=== PATIENT | male | born 1965 | race Caucasian/White ===

== ENCOUNTER 2016-10-12 06:20 | Day surgery (SDC) | payer BC ==
[2016-10-06 08:33] VITALS: BMI 38.4
[~2016-10-12 06:20] MED LIST: ACETAMINOPHEN TAB 500 MG TAB PO ONE; DEXAMETHASONE SOD PHOSPHATE 10 MG/ML 1 ML VIAL IV ONE; DEXAMETHASONE SOD PHOSPHATE 4 MG/ML 1 ML VIAL IV ONE; FAMOTIDINE 20 MG/2 ML VIAL IV ONE; LACTATED RINGERS 1,000 ML IV SCH; MIDAZOLAM 2 MG/2 ML VIAL IV PRN; ONDANSETRON 4 MG/2 ML VIAL IVP ONE; Pre Op ABX Message 1 EACH MISC MISCELLANE ONE; ceFAZolin 1,000 MG in DEXTROSE/WATER 1 50ML.BAG IV ONE
[2016-10-12] MEDS ORDERED: OXYMETAZOLINE 0.05% NASL SPRAY 15 ML NASAL ONE ×5 (06:45→07:11)
[2016-10-12] MEDS ORDERED: DEXTROSE 5% IN WATER 50 ML BAG ONE (07:37)
[2016-10-12] MEDS ORDERED: LACTATED RINGERS 1,000 ML BAG IV ONE (07:37)
[2016-10-12] MEDS ORDERED: ceFAZolin 1,000 MG VIAL ONE (07:37)
[2016-10-12] MEDS ORDERED: LIDOCAINE 1%-EPI 1:100,000 20 ML VIAL SQ ONE ×2 (08:03)
[2016-10-12] MEDS ORDERED: CIPROFLOXACIN-DEXAMETH 0.3-0.1% DROPS 7.5 ML BTL BOTH EARS ONE (08:03)
[2016-10-12] MEDS ORDERED: BACITRACIN 500 UNIT/GM OINT 28.4 GM TUBE TOPICAL ONE (08:08)
[2016-10-12] MEDS ORDERED: FLUORESCEIN STRIPS 1 MG STRIP MISCELLANE ONE (08:09)
[2016-10-12] MEDS ORDERED: EPINEPHrine 1 MG/ML (MDV) 30 ML VIAL TOPICAL ONE (08:09)
[2016-10-12] MEDS ORDERED: LACTATED RINGERS 1,000 ML IV ONE (08:36)
[2016-10-12 09:05] VITALS: TEMP 97
[2016-10-12] MEDS: HYDROmorphone 1 MG/ML 1 ML SYRINGE IVP PRN ×3 (09:10→09:21)
[2016-10-12] MEDS ORDERED: HYDROcodone/APAP 5-325MG 1 EACH TAB PO ONE (09:55)
--- NOTE | 2016-10-12 10:12 | P.OP ---
Date of Procedure: 10/12/16 Preoperative Diagnosis: Chronic otitis media with effusion Conductive hearing loss, bilateral Chronic sinusitis (Sinonasal polyps Foreign body left nose and sinus, metal wire Postoperative Diagnosis: Same Procedure(s) Performed: Bilateral direct microscopic tympanostomy and tube placement utilizing T tubes Bilateral endoscopic balloon eustachian tuboplasty Bilateral functional endoscopic sinus surgery with left sinonasal polyp removal Left endoscopic removal of foreign body i.e. wire Anesthesia: LUZMAA Surgeon: Jerry Eastman Estimated Blood Loss (ml): 10 Pathology: other (Foreign body left nose, sinonasal material) Condition: stable Disposition: PACU Indications for Procedure: This patient's been having a long-standing problem with his nose and sinuses. He is having a hard time breathing through his nose he has constant drainage chronic infection. He had a facial fracture many years ago and had wiring down to the maxilla. His ears have demonstrated a conductive hearing loss bilaterally for a long period of time. Operative Findings: Patient had a bilateral middle ear effusion Patient had widespread chronic sinusitis Patient had a foreign body in the left maxillary sinus and left nose underneath the inferior turbinates Description of Procedure: Patient was taken to the operative room and placed in the supine position. A general inhalation anesthetic was administered to the patient by mask. Patient was intubated. Patient was monitored throughout the entire case by the department of anesthesia. The patient had both ears visualized with a high- powered microscope. Tympanostomy incisions were made inferiorly. T tubes were placed and fluid was suctioned. Patient tolerated this well. Attention was then paid to the nose where a sphenopalatine nerve block was performed along with injection of the inferior turbinates middle turbinate and lateral nasal wall with lidocaine 1% with epinephrine 1 100,000. Endoscopic visualization was performed in the surgery was done with 0 and 30 Chery joaquin scopes. The nose and sinuses were inspected. There was a polyp causing blockage along the left ostomy complexes blocking all sinuses on the left there is lateralization of the middle turbinate on the right side blocking the sinuses on the right. Along the floor the nose and into the maxillary sinus was a shiny foreign object, a wire from a previous facial fracture surgery. This wire was collecting crusting and infectious debris. The wire was snipped and removed. This appeared to be a source of infection. This wire was removed. We then with use of an endoscope and a microdebrider we removed polyps and scar tissue bilaterally. We continued our dissection and open up the maxillary sinuses nicely and completed the ethmoidectomy on the left side with removal of all ethmoid septations. We then entered the sphenoid sinuses inferiorly medially bilaterally and we opened up the sphenoid sinuses and we remove diseased tissue from the sphenoid sinus we did the same thing to the frontal sinuses by entering the frontal sinus and removing diseased tissue from the frontal sinuses. To summarize the maxillary, ethmoid, frontal, and sphenoid sinuses were all open with diseased tissue removed. Polyp was removed on the left side. Scar tissue was removed bilaterally. We suture fixated the middle turbinates to the septum. We removed metal from the left maxillary sinus. We then went into the nasopharynx and identified the eustachian tube. With the acclarent device an eustachian tuboplasty was performed. This was done bilaterally. The patient tolerated this well. Xerogel was inserted. Patient was taken to postanesthesia recovery in excellent condition.
[2016-10-12 10:20] VITALS: BP 141/92; PULSE 100; RESP 16
== END 2016-10-12 10:36 | disposition home or self-care (01) ==
LOC: OR 06:20
PROVIDERS: ATTEND Otolaryngology
DX: H65.493 Other chronic nonsuppurative otitis media, bilateral (principal); H90.0 Conductive hearing loss, bilateral; J34.89 Other specified disorders of nose and nasal sinuses; J33.8 Other polyp of sinus; J32.4 Chronic pansinusitis; H69.93 Unspecified Eustachian tube disorder, bilateral; Z45.89 Encounter for adjustment and management of other implanted devices; I10 Essential (primary) hypertension; K21.9 Gastro-esophageal reflux disease without esophagitis; Z72.0 Tobacco use; Z88.2 Allergy status to sulfonamides; Z79.899 Other long term (current) drug therapy; Z79.51 Long term (current) use of inhaled steroids; Z79.52 Long term (current) use of systemic steroids
CPT/HCPCS: 69436; 20680; 69949; 31237; 88304; 88305; J0171; J1100; J2405; J0690; J1170

== ENCOUNTER 2018-04-08 05:44 | Emergency (ER) | payer BC ==
[2018-04-08 05:50] VITALS: RESP 18
[2018-04-08] MEDS ORDERED: ONDANSETRON 4 MG/2 ML VIAL IVP STA (05:59)
[2018-04-08] MEDS ORDERED: MORPHINE SULFATE 2 MG/ML SYRINGE IV STA (05:59)
[2018-04-08] MEDS ORDERED: SODIUM CHLORIDE 0.9% 1,000 ML IV STA (05:59)
[2018-04-08 06:33] LABS: Basophils # (A) 0.1 k/uL (0-0.2); Basophils % (A) 1 %; Eosinophils # (A) 0.2 k/uL (0-0.7); Eosinophils % (A) 3 %; HCT 47.3 % (39.0-53.0); HGB 16.4 gm/dL (13.0-17.5); Lymphocytes # (A) 1.8 k/uL (1.0-4.8); Lymphocytes % (A) 23 %; MCH 31.4 pg (25.0-35.0); MCHC 34.7 g/dL (31.0-37.0); MCV 90.6 fL (80.0-100.0); Mean Platelet Volume 7.2; Monocytes # (A) 0.4 k/uL (0-1.0); Monocytes % (A) 5 %; Neutrophils # (A) 5.3 k/uL (1.3-7.7); Neutrophils % (A) 67 %; Platelet Count 243 k/uL (150-450); RBC 5.23 m/uL (4.30-5.90); RDW 13.1 % (11.5-15.5); WBC 7.9 k/uL (3.8-10.6)
[2018-04-08 06:43] LABS: Appearance,Urine Clear (Clear); Bilirubin,Urine Negative (Negative); Blood,Urine Moderate (Negative); Color,Urine Yellow; Glucose,Urine (UA) Negative (Negative); Ketones,Urine Negative (Negative); Leukocyte Esterase,Urine Trace (Negative); Mucus,Urine Few /hpf; Nitrite,Urine Negative (Negative); Protein,Urine 1+ (Negative); RBC,Urine 53 /hpf (0-5); Specific Gravity,Urine 1.027 (1.001-1.035); WBC,Urine 7 /hpf (0-5)
[2018-04-08 06:49] LABS: ALT 36 U/L (21-72); AST 22 U/L (17-59); Albumin 4.3 g/dL (3.5-5.0); Alkaline Phosphatase 71 U/L (38-126); Amylase 35 U/L (30-110); Anion Gap 11 mmol/L; Blood Urea Nitrogen 19 mg/dL (9-20); Calcium 9.4 mg/dL (8.4-10.2); Carbon Dioxide 26 mmol/L (22-30); Chloride 106 mmol/L (98-107); Glucose 111 mg/dL (74-99); Lipase 55 U/L (23-300); Potassium 4.2 mmol/L (3.5-5.1); Sodium 143 mmol/L (137-145); Total Bilirubin 0.6 mg/dL (0.2-1.3); Total Protein 6.5 g/dL (6.3-8.2)
[2018-04-08] MEDS ORDERED: MORPHINE SULFATE 2 MG/ML SYRINGE IVP STA (07:15)
--- NOTE | 2018-04-08 07:21 | XR ---
EXAM: XR Abdomen, 2 Views CLINICAL HISTORY: ITS.REASON XR Reason: abdominal pain TECHNIQUE: Frontal view of the abdomen/pelvis with upright view of the abdomen. COMPARISON: No relevant prior studies available. FINDINGS: Lower thorax: Lower lungs are unremarkable. Intraperitoneal space: No visualized free air under the diaphragm. Gastrointestinal tract: Nonspecific bowel gas pattern. Paucity of central small bowel gas limits characterization. Moderate colonic stool. No definitive evidence for dilation. Bones/joints: Unremarkable. IMPRESSION: 1. Limited small bowel characterization due to lack of small bowel gas. There is a moderate colonic stool burden. Correlate for constipation.
[2018-04-08] MEDS ORDERED: MORPHINE SULFATE 2 MG/ML SYRINGE IVP PRN (08:56)
--- NOTE | 2018-04-08 08:56 | ED ---
Abdominal Pain HPI - General Source: patient Mode of arrival: ambulatory Limitations: no limitations <Britney Johnston - Last Filed: 04/08/18 08:57> <Ty Menjivar - Last Filed: 04/08/18 10:33> - General Chief Complaint: Abdominal Pain Stated Complaint: Flank Pain Time Seen by Provider: 04/08/18 05:52 - History of Present Illness Initial Comments: 52 years old male complains about the right-sided flank pain also complaining about pain in the scrotal area he feels there is a prominent vein in the scrotum pain now him started yesterday he denies any trauma he does have a History of kidney stones he had a he said he had several years ago a kidney stone he is complaining about nausea. Denies any headaches no chest pain or shortness of breath no abdominal pain him a he is complaining about difficulty voiding (Britney Johnston) - Related Data Home Medications Medication Instructions Recorded Confirmed Lisinopril [Zestril] 10 mg PO DAILY@0200 09/04/16 04/08/18 Previous Rx's Medication Instructions Recorded Ketorolac [Toradol] 10 mg PO Q6HR #20 tab 04/08/18 Tamsulosin [Flomax] 0.4 mg PO DAILY #7 cap 04/08/18 Allergies Allergy/AdvReac Type Severity Reaction Status Date / Time Sulfa (Sulfonamide Allergy Rash/Hives Verified 04/08/18 08:20 Antibiotics) Review of Systems ROS Other: All systems not noted in ROS Statement are negative. <Britney Johnston - Last Filed: 04/08/18 08:57> ROS Other: All systems not noted in ROS Statement are negative. <Ty Menjivar - Last Filed: 04/08/18 10:33> ROS Statement: Those systems with pertinent positive or pertinent negative responses have been documented in the HPI. Past Medical History Past Medical History: GERD/Reflux, Hyperlipidemia, Hypertension Additional Past Medical History / Comment(s): No current problems with GERD/ Reflux. Currently having a hard time hearing bilaterally. History of Any Multi-Drug Resistant Organisms: MRSA Date of last positivie culture/infection: 2006 MDRO Source:: boils to hip & face Past Surgical History: Hernia Repair Additional Past Surgical History / Comment(s): hemorrhoidectomy,Jaw surgery- wiring present,tubes sayda ears x 2, vasectomy Past Anesthesia/Blood Transfusion Reactions: No Reported Reaction Past Psychological History: No Psychological Hx Reported Smoking Status: Current every day smoker Past Alcohol Use History: Rare Past Drug Use History: None Reported - Past Family History Mother Family Medical History: Cancer Additional Family Medical History / Comment(s): lung Father Additional Family Medical History / Comment(s): passed with suicide at age 44 <Britney Johnston - Last Filed: 04/08/18 08:57> General Exam Limitations: no limitations <Britney Johnston - Last Filed: 04/08/18 08:57> <Ty Menjivar - Last Filed: 04/08/18 10:33> - General Exam Comments Initial Comments: General: The patient is awake and alert, in severe distress pain is 10 over 10 Skin: Skin is warm and dry and no rashes or lesions are noted. Eye: Pupils are equal, round and reactive to light, extra-ocular movements are intact; there is normal conjunctiva bilaterally. Ears, nose, mouth and throat: There are moist mucous membranes and no oral lesions. Neck: The neck is supple, there is no tenderness or JVD. Cardiovascular: There is a regular rate and rhythm. No murmur, rub or gallop is appreciated. Respiratory: To auscultation bilateral, no wheezing no rhonchi no distress respiratory vilchis noticed Gastrointestinal: Mild discomfort noticed in the right lower quadrant area and right scrotum noticed area, mild tenderness over the right half of the scrotum Back: There is no tenderness to palpation in the midline. There is no obvious deformity. Musculoskeletal: Normal ROM, no tenderness, There is no pedal edema. There is no calf tenderness or swelling. No cords were appreciated. Neurological: CN II-XII intact, Cranial nerves III through XII are intact. There are no obvious motor or sensory deficits. Coordination appears grossly intact. Speech is normal. Psychiatric: Cooperative, appropriate mood & affect, normal judgment. (Britney Johnston) Course <Britney Johnston - Last Filed: 04/08/18 08:57> <Ty Menjivar - Last Filed: 04/08/18 10:33> Vital Signs 04/08/18 04/08/18 05:47 10:25 Temperature 98.3 F 97.6 F Pulse Rate 80 72 Respiratory 18 18 Rate Blood Pressure 177/81 148/88 O2 Sat by Pulse 97 98 Oximetry She was reassessed at term 845 he still in a pain 05/17 and will proceed with a CT of the abdomen and pelvis and patient is endorsed to Dr. Menjivar for further management at 9 AM (Britney Johnston) Medical Decision Making - Lab Data Result diagrams: 04/08/18 06:18 04/08/18 06:18 <Britney Johnston - Last Filed: 04/08/18 08:57> - Lab Data Result diagrams: 04/08/18 06:18 04/08/18 06:18 - Radiology Data Radiology results: report reviewed (I did review the imaging and report is evidence of a 3 or 4 mm stone in the right UVJ also some hydronephrosis. Is a question of a mucosal lesions seen on CAT scan follow-up is recommended.), image reviewed <Ty Menjivar - Last Filed: 04/08/18 10:33> - Medical Decision Making Patient was endorsed me when Dr. Johnston finish his shift. Patient currently is pain-free at this time he anti-inflammatory pain medication did help. I long discussion with him and his regarding findings he had colonoscopy year ago at which time diverticulosis was diagnosed no other lesions noted I did inform him of the CAT scan report and did recommend follow-up with Dr. Aviles who had seen before the patient be discharged on appropriate medication. (Ty Menjivar) - Lab Data Lab Results 04/08/18 04/08/18 04/08/18 Range/Units 06:18 06:18 06:24 WBC 7.9 (3.8-10.6) k/uL RBC 5.23 (4.30-5.90) m/uL Hgb 16.4 (13.0-17.5) gm/dL Hct 47.3 (39.0-53.0) % MCV 90.6 (80.0-100.0) fL MCH 31.4 (25.0-35.0) pg MCHC 34.7 (31.0-37.0) g/dL RDW 13.1 (11.5-15.5) % Plt Count 243 (150-450) k/uL Neutrophils % 67 % Lymphocytes % 23 % Monocytes % 5 % Eosinophils % 3 % Basophils % 1 % Neutrophils # 5.3 (1.3-7.7) k/uL Lymphocytes # 1.8 (1.0-4.8) k/uL Monocytes # 0.4 (0-1.0) k/uL Eosinophils # 0.2 (0-0.7) k/uL Basophils # 0.1 (0-0.2) k/uL Sodium 143 (137-145) mmol/L Potassium 4.2 (3.5-5.1) mmol/L Chloride 106 (98-107) mmol/L Carbon Dioxide 26 (22-30) mmol/L Anion Gap 11 mmol/L BUN 19 (9-20) mg/dL Creatinine 1.03 (0.66-1.25) mg/dL Est GFR (CKD-EPI)AfAm >90 (>60 ml/min/1.73 sqM) Est GFR (CKD-EPI)NonAf 85 (>60 ml/min/1.73 sqM) Glucose 111 H (74-99) mg/dL Calcium 9.4 (8.4-10.2) mg/dL Total Bilirubin 0.6 (0.2-1.3) mg/dL AST 22 (17-59) U/L ALT 36 (21-72) U/L Alkaline Phosphatase 71 (38-126) U/L Total Protein 6.5 (6.3-8.2) g/dL Albumin 4.3 (3.5-5.0) g/dL Amylase 35 (30-110) U/L Lipase 55 (23-300) U/L Urine Color Yellow Urine Appearance Clear (Clear) Urine pH 6.0 (5.0-8.0) Ur Specific [place] 1.027 (1.001-1.035) Urine Protein 1+ H (Negative) Urine Glucose (UA) Negative (Negative) Urine Ketones Negative (Negative) Urine Blood Moderate H (Negative) Urine Nitrite Negative (Negative) Urine Bilirubin Negative (Negative) Urine Urobilinogen 2.0 (<2.0) mg/dL Ur Leukocyte Esterase Trace H (Negative) Urine RBC 53 H (0-5) /hpf Urine WBC 7 H (0-5) /hpf Urine Mucus Few H (None) /hpf Disposition <Britney Johnston - Last Filed: 04/08/18 08:57> Is patient prescribed a controlled substance at d/c from ED?: No <Ty Menjivar - Last Filed: 04/08/18 10:33> Clinical Impression: Abdominal pain, Renal colic on right side, Kidney stone on right side, Diverticulosis Disposition: HOME SELF-CARE Condition: Good Prescriptions: Ketorolac [Toradol] 10 mg PO Q6HR #20 tab Tamsulosin [Flomax] 0.4 mg PO DAILY #7 cap Referrals: None,Stated [Primary Care Provider] - 1-2 days Varinder Olivas MD [STAFF PHYSICIAN] - 1-2 days
[2018-04-08] MEDS ORDERED: KETOROLAC 30 MG/ML 1 ML VIAL IVP STA (08:57)
--- NOTE | 2018-04-08 09:42 | CT ---
EXAMINATION TYPE: CT abdomen pelvis w con DATE OF EXAM: 04/08/2018 COMPARISON: Abdomen same date HISTORY: Flank pain, unable to urinate CT DLP: 1826 mGycm Automated exposure control for dose reduction was used. TECHNIQUE: Helical acquisition of images from the lung bases through the pelvis have been completed. CONTRAST: Performed without Oral Contrast and with IV Contrast, patient injected with 100 mL of Isovue 300. FINDINGS: There may be a small hiatal hernia. LUNG BASES: Some minimal dependent atelectatic changes are present. No pleural or pericardial effusio n. AORTA: No significant abnormality is appreciated. LIVER/GB: The liver is enlarged and shows low attenuation possibly due to hepatic steatosis. Gallblad rosita is normal. PANCREAS: No significant abnormality is seen. SPLEEN: Spleen is unremarkable, splenule is present posteriorly and inferiorly. ADRENALS: No significant abnormality is seen. KIDNEYS: There is mild right-sided hydronephrosis, hydroureter. At the level of the ureterovesical or ifice there is a calcification present measuring approximately 3 to 4 mm on the right. Left kidney is normal. REPRODUCTIVE ORGANS: Prostate shows some associated calcifications. BOWEL: Small umbilical hernia contains fat. Appendix is normal. There is extensive diverticular pike ges associated with the colon, colonic wall thickening present in the sigmoid, there may be a small l ipoma axial image 78 associated with the sigmoid colon, difficult to exclude a mucosal lesion. Right inguinal hernia contains fat. FREE AIR: No Free Air visible. ASCITES: None visible. PELVIC ADENOPATHY: None visualized. RETROPERITONEAL ADENOPATHY: No Retroperitoneal Adenopathy visible. URINARY BLADDER: Thickened wall could be due to lack of distention, correlate to exclude cystitis. OSSEOUS STRUCTURES: Degenerative disc changes noted at the sacral junction, lumbar spine. Multilevel spondylosis with posterior disc bulges noted into the spinal canal. IMPRESSION: DISTAL RIGHT URETERAL CALCULUS WITH SOME RIGHT-SIDED HYDRONEPHROSIS. DIVERTICULOSIS. DIFFICULT TO EXC LUDE A MUCOSAL LESION, IF BOWEL SURVEILLANCE HAS NOT BEEN PERFORMED, IT SHOULD BE CONSIDERED. HEPATIC STEATOSIS, HEPATOMEGALY. RIGHT INGUINAL HERNIA. Additional findings above.
[2018-04-08 10:26] VITALS: BP 148/88; PULSE 72; TEMP 97.6
== END 2018-04-08 10:43 | disposition home or self-care (01) ==
LOC: EC 05:44
DX: N13.2 Hydronephrosis with renal and ureteral calculous obstruction (principal); K57.90 Diverticulosis of intestine, part unspecified, without perforation or abscess without bleeding; I10 Essential (primary) hypertension; F17.200 Nicotine dependence, unspecified, uncomplicated; Z86.14 Personal history of Methicillin resistant Staphylococcus aureus infection; Z98.52 Vasectomy status; Z88.2 Allergy status to sulfonamides; Z79.899 Other long term (current) drug therapy
CPT/HCPCS: 99284; 96374; 96375 ×2; 96376 ×2; 96361 ×4; 36415; 80053; 82150; 83690; 85025; 81001; 74018; 74177; J2405; J1885; J2270; Q9967

== ENCOUNTER → 2018-06-07 | Outpatient (CLI) | payer BC ==
--- NOTE | 2018-06-07 16:00 | XR ---
EXAMINATION TYPE: XR chest 2V DATE OF EXAM: 06/07/2018 COMPARISON: NONE TECHNIQUE: PA and lateral views submitted. HISTORY: Pain FINDINGS: The lungs are clear and there is no pneumothorax, pleural effusion, or focal pneumonia. IMPRESSION: 1. No acute process.
--- NOTE | 2018-06-07 16:05 | XR ---
EXAMINATION TYPE: XR foot complete bilateral DATE OF EXAM: 06/07/2018 COMPARISON: NONE HISTORY: Pain TECHNIQUE: Three views are submitted bilaterally. FINDINGS: The osseous structures are intact. There is no acute fracture or dislocation. There is significant narrowing of the first MTP joint bilaterally. Hypertrophic spurs noted. No erosive change. Calcaneal spurs noted bilaterally. IMPRESSION: 1. Bilateral calcaneal spurs 2. Arthropathy of the first MTP joint bilaterally
== END | disposition home or self-care (01) ==
LOC: RADXRMAIN 14:25
PROVIDERS: ATTEND Family Medicine
DX: M12.88 Other specific arthropathies, not elsewhere classified, other specified site (principal); M77.31 Calcaneal spur, right foot; I10 Essential (primary) hypertension
CPT/HCPCS: 71046

== ENCOUNTER → 2018-07-11 | Outpatient (CLI) | payer BC ==
--- NOTE | 2018-07-11 14:07 | ECHOF ---
Referral Reason:R00.2 Palpitations MEASUREMENTS -------- HEIGHT: 175.3 cm WEIGHT: 113.4 kg BP: RVIDd: 3.0 cm (< 3.3) IVSd: 1.2 cm (0.6 - 1.1) LVIDd: 4.4 cm (3.9 - 5.3) LVPWd: 1.2 cm (0.6 - 1.1) IVSs: 1.7 cm LVIDs: 3.2 cm LVPWs: 1.2 cm LAESV Index (A-L): 18.24 ml/m Ao Diam: 3.9 cm (2.0 - 3.7) AV Cusp: 2.1 cm (1.5 - 2.6) LA Diam: 3.7 cm (2.7 - 3.8) MV EXCURSION: 19.544 mm (> 18.000) MV EF SLOPE: 51 mm/s (70 - 150) EPSS: 0.3 cm MV E Tyler: 0.44 m/s MV DecT: 303 ms MV A Tyler: 0.73 m/s MV E/A Ratio: 0.61 FINDINGS -------- Sinus rhythm. This was a technically adequate study. The left ventricular size is normal. There is mild concentric left ventricular hypertrophy. Overa ll left ventricular systolic function is normal with, an EF between 55 - 60 %. The right ventricle is normal in size. The left atrial size is normal. The right atrial size is normal. The aortic valve is trileaflet, and appears structurally normal. No aortic stenosis or regurgitation. The mitral valve is normal. Mild mitral regurgitation is present. Mild tricuspid regurgitation present. There is no evidence of pulmonary hypertension. The right v entricular systolic pressure, as measured by Doppler, is {RVSP}. There is no pulmonic regurgitation present. The aortic root size is normal. There is no pericardial effusion. CONCLUSIONS -------- 1. Sinus rhythm. 2. This was a technically adequate study. 3. The left ventricular size is normal. 4. There is mild concentric left ventricular hypertrophy. 5. Overall left ventricular systolic function is normal with, an EF between 55 - 60 %. 6. The left atrial size is normal. 7. The aortic valve is trileaflet, and appears structurally normal. No aortic stenosis or regurgitati on. 8. Mild mitral regurgitation is present. 9. Mild tricuspid regurgitation present. 10. There is no evidence of pulmonary hypertension. 11. There is no pulmonic regurgitation present. 12. The aortic root size is normal. 13. There is no pericardial effusion. RADIO DISC JOCKEY: Carmen Davis RDCS
--- NOTE | 2018-07-11 14:13 | EST ---
EXERCISE STRESS AGE: 52 SEX: M HT: 69" WT: 250 PROTOCOL: Stress Test STAGE: 4 DURATION OF EXERCISE: 10:53 HEART RATE REST: 57 BLOOD PRESSURE REST: 120/92 MAXIMUM HEART RATE ACHIEVED: 144 MAXIMUM BLOOD PRESSURE: 171/96 85% MPHR: 145 100% MPHR: 170 METS: 12.1 INDICATIONS: Chest pain, hypertension. CLINICAL INFORMATION: Baseline rhythm is sinus mechanism, rate 57, normal axis and intervals, minor nonspecific ST-segment changes in the inferior leads. Baseline blood pressure 120/92 mmHg. Patient exercised on Allan protocol for 10 minutes 53 seconds reaching a peak rate of 144 beats per minute which is equal to 85% maximum predicted heart rate. Blood pressure 171/96 mmHg. Test was terminated secondary to fatigue. There was no chest pain. Electrocardiograph monitoring revealed rare PVCs. There was no evidence of diagnostic ischemic ST deviation. CONCLUSION: 1. Good exercise tolerance with no symptoms of chest pain. 2. Normal stress electrocardiogram with no evidence of stress-induced ischemia with rare premature ventricular contractions. MMODL / IJN: [id number] /
== END | disposition home or self-care (01) ==
LOC: RADNMMAIN 08:59
PROVIDERS: ATTEND Family Medicine
DX: I08.1 Rheumatic disorders of both mitral and tricuspid valves (principal); I47.1 Supraventricular tachycardia; I10 Essential (primary) hypertension
CPT/HCPCS: 93017; 93270; 93271; 93306

== ENCOUNTER → 2022-01-06 | Outpatient (CLI) | payer BC ==
--- NOTE | 2022-01-06 16:09 | XR ---
EXAMINATION TYPE: XR chest 2V DATE OF EXAM: 01/06/2022 COMPARISON: Chest x-ray 06/07/2018 HISTORY: F 17.203, wheezing TECHNIQUE: Frontal and lateral views of the chest are obtained. FINDINGS: There is no focal air space opacity, pleural effusion, or pneumothorax seen. The cardiac silhouette size is within normal limits. Bronchial wall thickening is present. The osseous structure s are intact, there is spondylosis. IMPRESSION: Correlate for bronchitis, reactive airways disease, follow-up as indicated.
== END | disposition home or self-care (01) ==
LOC: RADXRMAIN 13:58
PROVIDERS: ATTEND Family Medicine
DX: R06.2 Wheezing (principal); F17.203 Nicotine dependence unspecified, with withdrawal
CPT/HCPCS: 71046

== ENCOUNTER → 2022-05-24 | Outpatient (CLI) | payer BC ==
--- NOTE | 2022-05-25 08:05 | MR ---
EXAMINATION TYPE: MR brain wo/w con DATE OF EXAM: 05/24/2022 COMPARISON: NONE HISTORY: Acute onset cerebrovascular disease. Headache unusual duration with pressure and fatigue and unspecified disorder of cranial fossa per order. TECHNIQUE: Multiplanar, multisequence images of the brain and brainstem is performed without and with IV contras t, utilizing 11 mL intravenous Gadavist . FINDINGS: Diffusion weighted images demonstrate no evidence of a recent infarct or other diffusion ab normality. The ventricular system and cisternal spaces are normal in size and appearance. The brain volume is age appropriate. Occasional scattered focus of T2 hyperintensity seen throughout the white matter bilaterally greatest involving the bilateral frontal lobes with approximately 10-15 small scat tered lesions seen. Midline structures demonstrate normal morphology. The craniocervical junction appears within normal limits. Post contrast images demonstrate no abnormal enhancement. The dural venous sinuses appear pa tent. The visualized sinuses are clear and the globes are intact. Marked increased fluid signal throu ghout the mastoid air cells bilaterally. IMPRESSION: 1. Marked increased fluid signal throughout the mastoid air cells bilaterally could reflect product o f retained secretions, mastoiditis needs to be considered. Correlate clinically and with point tender ness. 2. Mild nonspecific white matter changes may be on the basis of altered vascular mechanics related to products of migraine headaches. 3. No MRI evidence for a recent infarct.
== END | disposition home or self-care (01) ==
LOC: RADMRIMAIN 15:30
PROVIDERS: ATTEND Nurse Practitioner Family
DX: G52.9 Cranial nerve disorder, unspecified (principal); R51.9 Headache, unspecified
CPT/HCPCS: 70553; A9585

== ENCOUNTER 2022-06-22 06:16 | Day surgery (SDC) | payer BC ==
[2022-06-20 14:25] VITALS: BMI 32.0
[~2022-06-22 06:16] MED LIST changes: -ACETAMINOPHEN TAB 500 MG TAB PO ONE; -DEXAMETHASONE SOD PHOSPHATE 10 MG/ML 1 ML VIAL IV ONE; -DEXAMETHASONE SOD PHOSPHATE 4 MG/ML 1 ML VIAL IV ONE; -FAMOTIDINE 20 MG/2 ML VIAL IV ONE; +FAMOTIDINE 20 MG/2 ML VIAL IV PRN; -MIDAZOLAM 2 MG/2 ML VIAL IV PRN; +OXYMETAZOLINE 0.05% NASL SPRAY 1 SPRAY BOTTLE EA NOSTRIL PRN; -Pre Op ABX Message 1 EACH MISC MISCELLANE ONE; -ceFAZolin 1,000 MG in DEXTROSE/WATER 1 50ML.BAG IV ONE
[2022-06-22] MEDS ORDERED: ONDANSETRON 4 MG/2 ML VIAL ONE (06:57)
[2022-06-22] MEDS ORDERED: HYDROmorphone 0.5 MG/0.5 ML SYRINGE IVP PRN (07:00)
[2022-06-22] MEDS ORDERED: LIDOCAINE 1% (10MG/ML) FOR IV START INTRADERMA ONE (07:00)
[2022-06-22] MEDS ORDERED: fentaNYL (PF) 50 MCG/ML 2 ML AMP IV PRN (07:00)
[2022-06-22] MEDS ORDERED: DEXAMETHASONE SOD PHOSPHATE 4 MG/ML 1 ML VIAL IV ONE (07:04)
[2022-06-22] MEDS ORDERED: fentaNYL (PF) 50 MCG/ML 2 ML AMP ONE (07:21)
[2022-06-22] MEDS ORDERED: MIDAZOLAM 2 MG/2 ML VIAL ONE (07:21)
[2022-06-22] MEDS ORDERED: LIDOCAINE 2% INJ 20 MG/ML (2 ML VIAL) ONE (07:21)
[2022-06-22] MEDS ORDERED: ePHEDrine 50 MG/ML 1 ML VIAL ONE (07:21)
[2022-06-22] MEDS ORDERED: PROPOFOL 10 MG/ML 20 ML VIAL IV ONE (07:21)
[2022-06-22] MEDS ORDERED: CIPROFLOX/FLUOCIN OTIC 0.25ML DROPERETTE OTIC ONE (07:59)
--- NOTE | 2022-06-22 08:28 | P.OP ---
Date of Procedure: 06/22/22 Preoperative Diagnosis: Bilateral cartilaginous eustachian tube obstruction Chronic serous otitis media Bilateral conductive hearing loss ALLERGIC rhinitis Postoperative Diagnosis: Same Procedure(s) Performed: Bilateral direct microscopic tympanostomy and tube placement utilizing T tubes Bilateral endoscopic balloon eustachian tuboplasty Anesthesia: LUZMAA Surgeon: Jerry Eastman Estimated Blood Loss (ml): 0 Pathology: none sent Condition: stable Disposition: PACU Indications for Procedure: This patient has had a lifetime of eustachian tube obstruction and middle ear effusion issues. He has redeveloped a chronic otitis media and eustachian tube obstruction issues are persistent. He's failed medical therapy and after a long discussion we decided to proceed forward with bilateral direct microscopic tympanostomy and tube placement utilizing T tubes along with a balloon eustachian tuboplasty. All risks, benefits, and alternative therapies were discussed in detail. Questions were answered and consent was obtained. Operative Findings: Patient had bilateral middle ear effusion. Both tympanic membranes were very thin and atrophic. Large amount of ALLERGIC drainage is noted and the eustachian tube orifice was inflamed. Description of Procedure: This patient was taken to the operative room and placed in the supine position. A general inhalation anesthetic was administered to the patient and subsequently had an LMA inserted and was monitored throughout the entire case by the department of anesthesia. Both ears were visualized with a 250 mm Zeiss microscope and cerumen and epithelial debris was removed from the external auditory canal. Both tympanic membranes were very atrophic. Both were retracted with a middle ear effusion present. Tympanostomy incision was made inferiorly and a T-tube was inserted bilaterally. Fluid was suctioned. Attention was then paid to the nose where a 0 Chery joaquin scope was inserted and both eustachian tube orifices were evaluated and both were found to be inf lamed. Fair amount of ALLERGIC drainage was noted. The aclarent balloon system was inserted and insufflated with standard protocols. After eustachian tube insufflation was performed. All instrumentation was removed and the patient was taken to postanesthesia recovery in excellent condition. Patient is to follow- up in the office in the next few weeks. He is to call me if any problems should arise.
[2022-06-22 08:32] VITALS: TEMP 97.6
[2022-06-22 09:14] VITALS: RESP 20
[2022-06-22 09:31] VITALS: BP 140/88; PULSE 70
== END 2022-06-22 09:40 | disposition home or self-care (01) ==
LOC: OR 06:16
PROVIDERS: ATTEND Otolaryngology
DX: H65.23 Chronic serous otitis media, bilateral (principal); H68.133 Extrinsic cartilagenous obstruction of Eustachian tube, bilateral; H90.0 Conductive hearing loss, bilateral; F17.210 Nicotine dependence, cigarettes, uncomplicated; Z83.79 Family history of other diseases of the digestive system; K21.9 Gastro-esophageal reflux disease without esophagitis; I10 Essential (primary) hypertension; I49.9 Cardiac arrhythmia, unspecified; R49.0 Dysphonia; Z98.890 Other specified postprocedural states; Z79.899 Other long term (current) drug therapy; Z88.2 Allergy status to sulfonamides
CPT/HCPCS: 69436; 69799; C1726; J2250; J1100; J2405; J3010; J2704; J2001

== ENCOUNTER 2024-07-19 11:09 | Emergency (ER) | payer BC ==
[2024-07-19 11:15] VITALS: TEMP 97.8
--- NOTE | 2024-07-19 11:52 | ED ---
Extremity Problem HPI - General Chief complaint: Extremity Problem,Nontraumatic Stated complaint: Hypertension Time Seen by Provider: 07/19/24 11:20 Source: patient, family, RN notes reviewed Mode of arrival: ambulatory Limitations: no limitations - History of Present Illness Initial comments: 58-year-old male presenting for right ankle pain x 1 day. He was sent from urgent care to rule out DVT. States he was on his feet all day yesterday and at the end of the day he noticed his right ankle started to swell and he began to have a squeezing pain up his calf and into the back of his knee. He has never had this before, denies injury or trauma. He also states his blood pressure was in the 170s at urgent care. He states he was previously on hypertension medication however discontinued meds as blood pressure was controlled through diet and lifestyle modifications. Denies other health conditions or blood thinners. He does states he had an episode of sharp left-sided chest pain yesterday at home that radiated to his back however subsided after about 15 minutes. Denies current chest pain, shortness of breath, fever, chills. - Related Data Home Medications Medication Instructions Recorded Confirmed Losartan Potassium 100 mg PO DAILY 06/20/22 06/22/22 Previous Rx's Medication Instructions Recorded Ofloxacin 0.3% Ophth Soln [Ocuflox 5 drops BOTH EARS BID 5 Days #10 ml 06/22/22 Ophth Soln] Losartan Potassium 50 mg PO DAILY 30 Days #30 tablet 07/19/24 Allergies Allergy/AdvReac Type Severity Reaction Status Date / Time Sulfa (Sulfonamide Allergy Rash/Hives Verified 06/22/22 06:48 Antibiotics) Review of Systems ROS Statement: Those systems with pertinent positive or pertinent negative responses have been documented in the HPI. ROS Other: All systems not noted in ROS Statement are negative. Past Medical History Past Medical History: GERD/Reflux Additional Past Medical History / Comment(s): No current problems with GERD/Reflux. Currently having a hard time hearing bilaterally. tinitis History of Any Multi-Drug Resistant Organisms: MRSA Date of last positivie culture/infection: 2006 MDRO Source:: boils to hip & face Past Surgical History: Hernia Repair Additional Past Surgical History / Comment(s): hemorrhoidectomy,Jaw surgery- wiring present,tubes sayda ears x 2, vasectomy Past Anesthesia/Blood Transfusion Reactions: No Reported Reaction Past Psychological History: No Psychological Hx Reported Past Alcohol Use History: Rare Past Drug Use History: None Reported - Past Family History Mother Family Medical History: Cancer Additional Family Medical History / Comment(s): lung Father Additional Family Medical History / Comment(s): passed with suicide at age 44 General Exam Limitations: no limitations General appearance: alert, in no apparent distress Head exam: Present: atraumatic, normocephalic, normal inspection Eye exam: Present: normal appearance, PERRL, EOMI. Absent: scleral icterus, conjunctival injection, periorbital swelling ENT exam: Present: normal exam, mucous membranes moist Neck exam: Present: normal inspection. Absent: tenderness, meningismus, lym phadenopathy Respiratory exam: Present: normal lung sounds bilaterally. Absent: respiratory distress, wheezes, rales, rhonchi, stridor Cardiovascular Exam: Present: regular rate, normal rhythm, normal heart sounds. Absent: systolic murmur, diastolic murmur, rubs, gallop, clicks GI/Abdominal exam: Present: soft, normal bowel sounds. Absent: distended, tenderness, guarding, rebound, rigid Right Upper Leg exam: Present: normal inspection, full ROM. Absent: tenderness, swelling Knee exam: Present: normal inspection (No notable erythema or edema), full ROM, tenderness (Mild popliteal tenderness to palpation). Absent: swelling, abrasion, laceration Lower Leg exam: Present: normal inspection, full ROM. Absent: tenderness, swelling, erythema, Homans' sign Ankle exam: Present: normal inspection, full ROM. Absent: tenderness, swelling, erythema Foot/Toe exam: Present: normal inspection, full ROM. Absent: tenderness, swelling Neurovascular tendon exam: Present: no vascular compromise. Absent: pulse deficit, abnormal cap refill, sensory deficit Neurological exam: Present: alert, oriented X3 Psychiatric exam: Present: normal affect, normal mood Skin exam: Present: warm, dry, intact, normal color. Absent: rash Course Vital Signs 07/19/24 07/19/24 07/19/24 11:12 11:58 13:15 Temperature 97.8 F Pulse Rate 78 79 76 Respiratory 16 16 18 Rate Blood Pressure 176/103 164/110 165/100 O2 Sat by Pulse 96 97 95 Oximetry Medical Decision Making - Medical Decision Making Was pt. sent in by a medical professional or institution (BECKI Valente, NON FOOD RECEIVING CLERK, urgent care, hospital, or assisted...) When possible be specific @ -No Did you speak to anyone other than the patient for history (EMS, parent, family, police, friend...)? What history was obtained from this source @ -No Did you review nursing and triage notes (agree or disagree)? Why? @ -I reviewed and agree with nursing and triage notes Were old charts reviewed (outside hosp., previous admission, EMS record, old EKG, old radiological studies, urgent care reports/EKG's, assisted records)? Report findings @ -No old charts were reviewed Differential Diagnosis (chest pain, altered mental status, abdominal pain women, abdominal pain men, vaginal bleeding, weakness, fever, dyspnea, syncope, headache, dizziness, GI bleed, back pain, seizure, CVA, palpatations, mental health, musculoskeletal)? @ -Differential Musculoskeletal Muscular strain, contusion, ligament sprain, fracture, arthritis, septic arth ritis, bursitis, cellulitis, muscle spasm, nerve compression, DVT, arterial occlusion, herpes zoster, electrolyte abnormality, tumor.... This is not meant to be in all inclusive list EKG interpreted by me (3pts min.). @ -As above X-rays interpreted by me (1pt min.). @ -Chest x-ray reveals no acute process CT interpreted by me (1pt min.). @ -None done U/S interpreted by me (1pt. min.). @ -Ultrasound right lower extremity no evidence for DVT What testing was considered but not performed or refused? (CT, X-rays, U/S, labs)? Why? @ -None What meds were considered but not given or refused? Why? @ -None Did you discuss the management of the patient with other professionals (professionals i.e. BECKI Valente, NON FOOD RECEIVING CLERK, lab, RT, psych nurse, drug abuse social worker, back facer, teacher, building drafting officer, case checker)? Give summary @ -No Was smoking cessation discussed for >3mins.? @ -No Was critical care preformed (if so, how long)? @ -No Were there social determinants of health that impacted care today? How? (Homelessness, low income, unemployed, alcoholism, drug addiction, transportation, low edu. Level, literacy, decrease access to med. care, senior living, rehab)? @ -No Was there de-escalation of care discussed even if they declined (Discuss DNR or withdrawal of care, Hospice)? DNR status @ -No What co-morbidities impacted this encounter? (DM, HTN, Smoking, COPD, CAD, Cancer, CVA, ARF, Chemo, Hep., AIDS, mental health diagnosis, sleep apnea, morbid obesity)? @ -None Was patient admitted / discharged? Hospital course, mention meds given and route, prescriptions, significant lab abnormalities, going to OR and other pertinent info. @ -Discharged. This is a 58-year-old male sent from urgent care for DVT rule out and hypertension. Patient reports right ankle pain that radiates to the back of the knee x 1 day. No trauma or injury. Denies blood thinners. Patient is currently asymptomatic, denies current chest pain or shortness of breath. Initial blood pressure was 176/105, other vital signs are unremarkable. No acute distress. Right lower extremity is negative for erythema or edema, patient is having mild tenderness over right ankle and in popliteal space. EKG reveals normal sinus rhythm with T wave inversions in leads V5 and V6. Ultrasound right lower extremity no evidence for DVT. Lab work including CBC, CMP, coags, troponin unremarkable. Repeat blood pressure 164/110. Discussed findings with patient. Discussed diagnosis of hypertension. Patient was given first dose of losartan in ER, and prescribed to pharmacy to take daily. Strict cardiopulmonary return precautions and lifestyle modifications discussed. Advised to follow-up with PCP in 1 week for reevaluation. Advised to keep a journal of twice daily blood pressures at home. Patient is in agreement to plan. Case discussed with my ED attending Dr. Bueno. Patient discharged in stable condition. Undiagnosed new problem with uncertain prognosis? @ -No Drug Therapy requiring intensive monitoring for toxicity (Heparin, Nitro, Insulin, Cardizem)? @ -No Were any procedures done? @ -No Diagnosis/symptom? @ -Hypertension, right ankle pain Acute, or Chronic, or Acute on Chronic? @ -Acute Uncomplicated (without systemic symptoms) or Complicated (systemic symptoms)? @ -Uncomplicated Side effects of treatment? @ -No Exacerbation, Progression, or Severe Exacerbation? @ -No Poses a threat to life or bodily function? How? (Chest pain, [place], [place], pneumonia, PE, COPD, DKA, ARF, appy, cholecystitis, CVA, Diverticulitis, Homicidal, Suicidal, threat to staff... and all critical care pts) @ -Not at this time - Lab Data Result diagrams: 07/19/24 11:47 07/19/24 11:47 Lab Results 07/19/24 07/19/24 07/19/24 Range/Units 11:47 11:47 11:47 WBC 7.8 (3.8-10.6) k/uL RBC 5.33 (4.30-5.90) m/uL Hgb 17.1 (13.0-17.5) gm/dL Hct 49.3 (39.0-53.0) % MCV 92.4 (80.0-100.0) fL MCH 32.1 (25.0-35.0) pg MCHC 34.8 (31.0-37.0) g/dL RDW 12.2 (11.5-15.5) % Plt Count 176 (150-450) k/uL MPV 9.0 Neutrophils % 70 % Lymphocytes % 20 % Monocytes % 5 % Eosinophils % 4 % Basophils % 1 % Neutrophils # 5.4 (1.3-7.7) k/uL Lymphocytes # 1.5 (1.0-4.8) k/uL Monocytes # 0.4 (0-1.0) k/uL Eosinophils # 0.3 (0-0.7) k/uL Basophils # 0.1 (0-0.2) k/uL PT 10.1 (10.0-12.5) sec INR 0.9 (<1.2) APTT 24.3 (22.0-30.0) sec Sodium 139 (137-145) mmol/L Potassium 3.9 (3.5-5.1) mmol/L Chloride 108 H (98-107) mmol/L Carbon Dioxide 24 (22-30) mmol/L Anion Gap 7 mmol/L BUN 23 H (9-20) mg/dL Creatinine 0.97 (0.66-1.25) mg/dL Est GFR (CKD-EPI)AfAm >90 (>60 ml/min/1.73 sqM) Est GFR (CKD-EPI)NonAf 88 (>60 ml/min/1.73 sqM) Glucose 153 H (74-99) mg/dL Calcium 9.3 (8.4-10.2) mg/dL Total Bilirubin 0.6 (0.2-1.3) mg/dL AST 27 (17-59) U/L ALT 24 (4-49) U/L Alkaline Phosphatase 80 (38-126) U/L Troponin I (0.000-0.034) ng/mL Total Protein 6.2 L (6.3-8.2) g/dL Albumin 4.1 (3.5-5.0) g/dL 07/19/24 Range/Units 11:47 WBC (3.8-10.6) k/uL RBC (4.30-5.90) m/uL Hgb (13.0-17.5) gm/dL Hct (39.0-53.0) % MCV (80.0-100.0) fL MCH (25.0-35.0) pg MCHC (31.0-37.0) g/dL RDW (11.5-15.5) % Plt Count (150-450) k/uL MPV Neutrophils % % Lymphocytes % % Monocytes % % Eosinophils % % Basophils % % Neutrophils # (1.3-7.7) k/uL Lymphocytes # (1.0-4.8) k/uL Monocytes # (0-1.0) k/uL Eosinophils # (0-0.7) k/uL Basophils # (0-0.2) k/uL PT (10.0-12.5) sec INR (<1.2) APTT (22.0-30.0) sec Sodium (137-145) mmol/L Potassium (3.5-5.1) mmol/L Chloride (98-107) mmol/L Carbon Dioxide (22-30) mmol/L Anion Gap mmol/L BUN (9-20) mg/dL Creatinine (0.66-1.25) mg/dL Est GFR (CKD-EPI)AfAm (>60 ml/min/1.73 sqM) Est GFR (CKD-EPI)NonAf (>60 ml/min/1.73 sqM) Glucose (74-99) mg/dL Calcium (8.4-10.2) mg/dL Total Bilirubin (0.2-1.3) mg/dL AST (17-59) U/L ALT (4-49) U/L Alkaline Phosphatase (38-126) U/L Troponin I <0.012 (0.000-0.034) ng/mL Total Protein (6.3-8.2) g/dL Albumin (3.5-5.0) g/dL - EKG Data -: EKG Interpreted by Me EKG Comments: EKG reveals normal sinus rhythm with T wave inversions in V5 and V6. Ventricular rate 75 bpm, SD interval 182, QRS duration 102, QT/QTc 361/390 Disposition Clinical Impression: Hypertension, Edema of right lower extremity Disposition: HOME SELF-CARE Condition: Stable Instructions (If sedation given, give patient instructions): Hypertension (ED) Additional Instructions: Take losartan once daily for blood pressure. Follow-up with PCP next week. Please return to the Emergency Department if symptoms worsen or any other concerns. Prescriptions: Losartan Potassium 50 mg PO DAILY 30 Days #30 tablet Is patient prescribed a controlled substance at d/c from ED?: No Referrals: Otto oJse DO [Primary Care Provider] - 1-2 days Time of Disposition: 13:18
[2024-07-19 12:09] LABS: Basophils # (A) 0.1 k/uL (0-0.2); Basophils % (A) 1 %; Eosinophils # (A) 0.3 k/uL (0-0.7); Eosinophils % (A) 4 %; HCT 49.3 % (39.0-53.0); HGB 17.1 gm/dL (13.0-17.5); Lymphocytes # (A) 1.5 k/uL (1.0-4.8); Lymphocytes % (A) 20 %; MCH 32.1 pg (25.0-35.0); MCHC 34.8 g/dL (31.0-37.0); MCV 92.4 fL (80.0-100.0); Monocytes # (A) 0.4 k/uL (0-1.0); Monocytes % (A) 5 %; Neutrophils # (A) 5.4 k/uL (1.3-7.7); Neutrophils % (A) 70 %; Platelet Count 176 k/uL (150-450); RBC 5.33 m/uL (4.30-5.90); RDW 12.2 % (11.5-15.5); WBC 7.8 k/uL (3.8-10.6)
[2024-07-19 12:24] LABS: ALT 24 U/L (4-49); AST 27 U/L (17-59); African American GFR (CKD) >90 (>60 ml/min/1.73 sqM); Albumin 4.1 g/dL (3.5-5.0); Alkaline Phosphatase 80 U/L (38-126); Anion Gap 7 mmol/L; Blood Urea Nitrogen 23 mg/dL (9-20); Calcium 9.3 mg/dL (8.4-10.2); Carbon Dioxide 24 mmol/L (22-30); Chloride 108 mmol/L (98-107); Glucose 153 mg/dL (74-99); INR 0.9 (<1.2); Non-African American GFR(CKD) 88 (>60 ml/min/1.73 sqM); Partial Thromboplastin Time 24.3 sec (22.0-30.0); Potassium 3.9 mmol/L (3.5-5.1); Prothrombin Time 10.1 sec (10.0-12.5); Sodium 139 mmol/L (137-145); Total Bilirubin 0.6 mg/dL (0.2-1.3); Total Protein 6.2 g/dL (6.3-8.2)
--- NOTE | 2024-07-19 12:59 | XR ---
EXAMINATION TYPE: XR chest 2V DATE OF EXAM: 07/19/2024 COMPARISON: 01/06/2022 HISTORY: Chest pain TECHNIQUE: Frontal and lateral views of the chest are obtained. FINDINGS: There is no focal air space opacity, pleural effusion, or pneumothorax seen. The cardiac silhouette size is within normal limits. The osseous structures are intact. IMPRESSION: No acute cardiopulmonary process. [facility], , 07/19/2024 12:56 PM
--- NOTE | 2024-07-19 13:00 | US ---
EXAMINATION TYPE: US venous doppler duplex LE RT DATE OF EXAM: 07/19/2024 12:46 PM COMPARISON: NONE CLINICAL INDICATION: Male, 58 years old with history of pain; rt leg edema. TECHNIQUE: The lower extremity deep venous system is examined utilizing real time linear array sonog [place] with graded compression, color doppler sonography, and spectral doppler. SIDE PERFORMED: Right FINDINGS: VESSELS IMAGED: Common Femoral Vein Deep Femoral Vein Greater Saphenous Vein * Femoral Vein Popliteal Vein Small Saphenous Vein * Proximal Calf Veins (* superficial vessels) The deep venous system of the right lower extremity from the common femoral vein to the proximal calf veins is patent and compressible with augmentable flow with normal waveforms. IMPRESSION: No evidence of right lower extremity DVT from the common femoral vein to the proximal calf veins [facility], Workstation: [id number] 07/19/2024 12:57 PM
[2024-07-19] MEDS: LOSARTAN 50 MG TAB PO STA (13:21)
[2024-07-19 13:28] VITALS: BP 166/101; PULSE 81; RESP 16
== END 2024-07-19 13:30 | disposition home or self-care (01) ==
LOC: EC 11:09
CPT/HCPCS: 36415; 71046; 80053; 84484; 85025; 85610; 85730; 93005; 99284

== ENCOUNTER → 2024-08-04 | Outpatient (CLI) | payer BC ==
--- NOTE | 2024-08-04 17:32 | CT ---
EXAMINATION TYPE: CT iac wo con CT DLP: 291 mGycm, Automated exposure control for dose reduction was used. 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 COMPARISON: . TECHNIQUE: Multiple thin axial images were obtained through the temporal bones and internal auditory canals. Additional coronal reformatted images were obtained. No IV contrast was utilized. CT Contrast: mL of , none. FINDINGS: Right Temporal Bone: External Ear: Small amount of debris is seen within the external auditory canal. The tympanic membran e is present with tympanostomy tubing present in appropriate position similar to contralateral side. Middle Ear: Fluid is seen within the right middle ear. The ossicles demonstrate a normal appearance. Prussak's space is opacified and the scutum appears asymmetrically eroded however special views for the ear are not performed.. Compared to the contralateral side. The tegmen tympani is intact. Inner Ear: Cochlea, vestibule and semi circular canals are unremarkable. No evidence of carotid natasha l dehiscence. Two and a half turns of the cochlea are identified. The vestibular aqueduct is not enl arged. Mastoid Air Cells: The mastoid air cells are clear. The tegmen mastoideum is intact. The aditus ad an trum is partially opacified.. Internal Auditory Canal: The internal auditory canal is unremarkable. Left Temporal Bone: External Ear: The external auditory canal demonstrates debris to lesser extent than the contralateral side, The tympanic membrane is present with tympanostomy tubing present. Middle Ear: The ossicles demonstrate a normal appearance. Prussak's space is clear and the scutum i s intact. There is no evidence of osseous erosion and the tegmen tympani is intact. Inner Ear: Cochlea, vestibule and semi circular canals are unremarkable. No evidence of carotid natasha l dehiscence. Two and a half turns of the cochlea are identified. The vestibular aqueduct is not enl arged. Mastoid Air Cells: Trace left mastoid air cell opacification. The tegmen mastoideum is intact. The ad itus ad antrum is clear. Internal Auditory Canal: The internal auditory canal is unremarkable. Other: Mild paranasal sinus mucosal thickening. Postsurgical changes ostiomeatal complex's. Facial fi xation wires present. Deformity to the nasal bone bilaterally left greater than right. Mucosal thicke alaina of the paranasal sinuses most pronounced on the right with right superior paranasal sinus diseas e in the frontal sinus and right ethmoid air cells. There is opacification of the frontal nasal reces s on the right with patency in the left. IMPRESSION: 1. Right mastoid air cell effusion, right middle ear effusion, right external auditory canal debris, correlate for otomastoiditis. 2. Left external auditory canal debris with left middle ear effusion. Minimal left mastoid air cell effusion. 3. Bilateral tympanostomy tubing appear in appropriate position. 4. Remote nasal bone fracture. 5. Postsurgical changes to the ostiomeatal complexes which are patent. 6. Paranasal sinus disease worse on the right. [facility], Workstation: [id number], 08/04/2024 5:30 PM
== END | disposition home or self-care (01) ==
LOC: RADCTMAIN 16:44
PROVIDERS: ATTEND Otolaryngology
CPT/HCPCS: 70480